=== PATIENT | male | born 1955 | race African-American/Black ===

== ENCOUNTER 2019-09-27 15:47 | Day surgery (SDC) | payer OTHER ==
--- NOTE | 2019-09-27 07:43 | HP ---
History & Physical Update - History History: No Change - Physical Physical: No Change - Assessment Assessment: No Change - Plan Plan: No Change
[2019-09-27 07:46] VITALS: BMI 17.5
--- NOTE | 2019-09-27 07:46 | OP ---
Operative Note - Note: Operative Date: 09/27/19 Pre-Operative Diagnosis: prostate cancer Operation: prostate cryoablation and cystoscopy Findings: prostate cryoablation and cystoscopy Post-Operative Diagnosis: Same as Pre-op Surgeon: Sherwin Villatoro Anesthesiologist/GROUP UNDERWRITER: Raiza Johnson Anesthesia: General Estimated Blood Loss (mls): 0 Drains & Tubes with Location: 18 fr calvert Operative Report Dictated: Yes
--- NOTE | 2019-09-27 13:58 | OP ---
DATE OF OPERATION: 09/27/2019 PREOPERATIVE DIAGNOSIS: Prostate cancer. POSTOPERATIVE DIAGNOSIS: Prostate cancer. PROCEDURE: Cystoscopy and prostate cryoablation. SURGEON: Sherwin Valerio MD CHAIRMAN & CHIEF EXECUTIVE OFFICER: None. ANESTHESIA: General via laryngeal mask. ANESTHESIOLOGIST: NIURKA Orlando SPECIMENS: None. CULTURES: None. DRAINS: 18-[place] Bernal catheter. ESTIMATED BLOOD LOSS: Negligible. COMPLICATIONS: None. DESCRIPTION OF PROCEDURE: Patient was brought into the operating room. Placed on the operating room table in the supine position. After administration of general anesthesia via laryngeal mask, intravenous antibiotics were administered. Sequential compression devices were placed. Patient was placed in dorsal lithotomy. Perineum was shaved 1st, and the genitals and perineum were prepped and draped in usual sterile manner. An 18-[place] Bernal catheter was placed per urethra into the bladder, 10 mL was placed in the balloon. The bladder was filled with 350 mL of sterile normal saline and clamped. Transrectal ultrasound probe was inserted per rectum. Transrectal ultrasound of the prostate was done, and a plan was devised for prostate cryoablation whole gland. Once the plan was devised, the 6 cryoablation probes were placed in the appropriate location under ultrasound guidance as well as 2 temperature sensors, 1 in [place] fascia and 1 in the external sphincter. Now the indwelling Bernal catheter was removed. Flexible cystoscopy was performed. Demonstrated no probes had penetrated the prostatic urethra or the bladder. The anterior urethra was normal. The prostatic urethra measured approximately 4-1/2 cm in length. Demonstrated moderate bilobar occlusion. The bladder was entered, thoroughly inspected. There were no foreign bodies, tumors, stones, inflammation. Both ureteral orifices were in their usual location with clear efflux bilaterally. The scope was retroflexed onto the bladder neck, and no probes were seen penetrating the bladder. Now the Super Stiff guidewire was inserted through the cystoscope into the bladder under direct vision. The cystoscope was removed, and the urethral warmer was passed over the guidewire into the bladder, and the guidewire was removed. Urethral warming was started. The position of the probes was confirmed under ultrasound guidance. Once again, measurements had been taken. The probes set to the appropriate length. Now 2 freeze/thaw cycles were done. At the end of the procedure, probes and temperature sensors were removed. Manual pressure on the perineum achieved hemostasis. The wound was sterilely dressed with bacitracin, 4 x 4, and Tegaderm. Bernal catheter drainage at the end of the procedure was clear. He tolerated the procedure well, transferred to the recovery in stable condition. SHERWIN VALERIO M.D. [id number]
[~2019-09-27 15:47] MED LIST: ACETAMINOPHEN 1000 MG/100 ML VIAL (NON FORMULARY) IVPB ONE; ACETAMINOPHEN INJECTION 100 ML IVPB ONE; BACITRACIN 15 GM TUBE TOPICAL OINTMENT TP ONE; ceFAZolin 2 GRAM PREMIX BAG IVPB ONE
[2019-09-27] MEDS ORDERED: PROMETHAZINE HCL 25 MG/1 ML VIAL IVPUSH PRN (16:49)
[2019-09-27] MEDS ORDERED: oxyCODONE HCL 5 MG TABLET PO PRN (16:49)
[2019-09-27] MEDS ORDERED: LACTATED RINGERS SOLUTION 1,000 ML IV SCH (17:00)
[2019-09-28] MEDS ORDERED: PANTOPRAZOLE 40 MG TABLET (FP) PO ONE (10:00)
[2019-09-28 17:09] VITALS: BP 104/65; PULSE 110; TEMP 97.8
== END 2019-09-28 12:31 | disposition home or self-care (01) ==
LOC: JASUSAT 15:47 → J6S 18:02 → JASUSAT 09-28 12:31
PROVIDERS: ATTEND Urology
PROC: 0V503ZZ Destruction of Prostate, Percutaneous Approach (ICD-10-PCS; principal; 2019-09-27 09:30)
PROC: BV49ZZZ Ultrasonography of Prostate and Seminal Vesicles (ICD-10-PCS; 2019-09-27 09:30)
DX: C61 Malignant neoplasm of prostate (principal); I10 Essential (primary) hypertension; E78.5 Hyperlipidemia, unspecified; Z21 Asymptomatic human immunodeficiency virus [HIV] infection status
CPT/HCPCS: 55873; C2618; 94760; J0131